=== PATIENT | male | born 1955 | race Caucasian/White ===

== ENCOUNTER 2020-07-31 18:31 | Inpatient (IN) | payer OTHER ==
[~2020-07-31] VITALS: Ht 175.3 cm; Wt 108.4 kg
[2020-07-31 18:37] VITALS: BP 171/61
[2020-07-31 19:05] LABS: ABSOLUTE BASOPHILS 0.1 thou/uL (0.0-0.2); ABSOLUTE EOSINOPHILS 0.2 thou/uL (0.0-0.7); ABSOLUTE LYMPHOCYTES 1.1 thou/uL (0.8-5.3); ABSOLUTE MONOCYTES 0.6 thou/uL (0.0-1.2); ABSOLUTE NEUTROPHILS 3.3 thou/uL (1.6-8.1); EOSINOPHILS 3.1 %; HEMATOCRIT 37.9 % (42.0-52.0); HEMOGLOBIN 12.9 gm/dL (14.0-18.0); LYMPHOCYTES 21.4 %; MCH 30.6 pg (26.0-34.0); MCHC 34.2 g/dL (28.0-37.0); MCV 89.5 fL (80.0-100.0); MONOCYTES 12.1 %; MPV 7.9 fl. (7.2-11.1); NUCLEATED RBCS 0 /100WBC; PLATELET COUNT* 166 thou/uL (150-400); POLYS 62.4 %; RBC 4.23 mil/uL (4.50-6.00); RDW-CV 15.2 % (10.5-14.5); WBC 5.2 thou/uL (4.0-11.0)
[2020-07-31 19:12] LABS: CALCIUM 8.1 mg/dL (8.5-10.1); CREATININE 1.1 mg/dL (0.6-1.3); POTASSIUM 3.8 mmol/L (3.5-5.1)
[2020-07-31 19:23] LABS: ALBUMIN 3.5 g/dL (3.4-5.0); MAGNESIUM 1.9 mg/dL (1.8-2.4); TOTAL BILIRUBIN 0.5 mg/dL (<0.1-1.0); TOTAL PROTEIN 7.4 g/dL (6.4-8.2)
[2020-07-31 19:30] LABS: APTT 24.7 Seconds (25.0-31.3); PROTIME 10.7 Seconds (9.20-11.50)
[2020-07-31 21:17] LABS: URINE BILIRUBIN NEGATIVE (Negative); URINE BLOOD NEGATIVE (Negative); URINE CLARITY CLEAR; URINE COLOR YELLOW; URINE GLUCOSE-RANDOM NEGATIVE (Negative); URINE KETONES NEGATIVE (Negative); URINE LEUKOCYTES-REFLEX NEGATIVE (Negative); URINE NITRITE-REFLEX NEGATIVE (Negative); URINE PROTEIN TRACE (Negative); URINE SPECIFIC GRAVITY 1.025 (1.005-1.030); URINE UROBILINOGEN 0.2 E.U./dl (0.2-1.0)
[2020-07-31 21:24] LABS: AMP/METHAMP Negative (Negative); BARBITURATES Negative (Negative); BENZODIAZEPINES Negative (Negative); COCAINE Negative (Negative); METHADONE Negative (Negative); OPIATES Negative (Negative); PCP Negative (Negative); THC Negative (Negative)
[2020-07-31 21:42] VITALS: BP 145/70
[2020-08-01] VITALS (20 sets, daily range): BP systolic 117–167; BP diastolic 63–90
--- NOTE | 2020-08-01 10:16 | EKG ---
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: JERMAIN : 1955 Requested By: Char Moreno Order Number: [id number] MD: Damian Schrader Measurements Intervals [place] Rate: 87 P: 38 VA: 146 QRS: 2 QRSD: 93 T: 6 QT: 407 QTc: 490 Interpretive Statements Sinus rhythm Probable left atrial enlargement Probable LVH with secondary repol abnrm Borderline prolonged QT interval No previous ECG available for comparison Electronically Signed On 08-01-2020 10:16:06 CDT by Damian Schrader [email or web address] <ELECTRONICALLY SIGNED> By: Damian Schrader MD, FACC 08/01/20 1016 1847 1847 Damian Schrader MD, [facility] /EPI
--- NOTE | 2020-08-01 14:15 | EKG ---
[place] [address] ELECTROCARDIOGRAM REPORT Name: MARIA TERESA HORN Room: [address] ADM IN .R.#: [id number] Admission: 07/31/20 Attend Phys: Jody Fish, Discharge: Date of : 59 Date of Service: 08/01/20 1232 Report #: [id number] THIS REPORT FOR: //name// 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29 : 1955 Requested By: Damian Schrader Order Number: [id number] [place] MD: Damian Schrader Measurements Intervals [place] Rate: 82 P: 57 [place]: 147 QRS: 13 QRSD: 93 T: 30 QT: 370 QTc: 432 Interpretive Statements Sinus rhythm Probable LVH with secondary repol abnrm Compared to ECG 07/31/2020 18:47:44 No significant changes Electronically Signed On 08-01-2020 14:15:03 CDT by Damian Schrader [email or web address] <ELECTRONICALLY SIGNED> By: Damian Schrader MD, [facility] 08/01/20 1415 1232 1232 Damian Schrader MD, [facility] /EPI
[2020-08-02] VITALS: BP 151/88
[2020-08-02 05:10] LABS: ABSOLUTE EOSINOPHILS 0.1 thou/uL (0.0-0.7); ABSOLUTE LYMPHOCYTES 1.1 thou/uL (0.8-5.3); ABSOLUTE MONOCYTES 0.6 thou/uL (0.0-1.2); ABSOLUTE NEUTROPHILS 2.9 thou/uL (1.6-8.1); BASOPHILS 0.5 %; HEMATOCRIT 34.6 % (42.0-52.0); LYMPHOCYTES 22.5 %; MCH 31.1 pg (26.0-34.0); MCHC 34.6 g/dL (28.0-37.0); MCV 89.9 fL (80.0-100.0); MONOCYTES 13.4 %; MPV 8.7 fl. (7.2-11.1); NUCLEATED RBCS 0 /100WBC; PLATELET COUNT* 145 thou/uL (150-400); POLYS 61.6 %; RBC 3.85 mil/uL (4.50-6.00); RDW-CV 15.2 % (10.5-14.5); WBC 4.7 thou/uL (4.0-11.0)
[2020-08-02 05:17] LABS: ANION GAP 9 mmol/L (7-16); BUN 14 mg/dL (7-18); CALCIUM 8.2 mg/dL (8.5-10.1); CHLORIDE 101 mmol/L (98-107); CHOLESTEROL 161 mg/dL (<200); CO2 26 mmol/L (21-32); CREATININE 1.1 mg/dL (0.6-1.3); GLUCOSE 135 mg/dL (70-99); HDL CHOLESTEROL 42 mg/dL (>40); LDL CHOLESTEROL 93 mg/dL (<100); POTASSIUM 3.6 mmol/L (3.5-5.1); SODIUM 136 mmol/L (136-145); TC:HDL 3.8 Ratio (Not establshd); TRIGLYCERIDE 130 mg/dL (<150); VLDL 26 mg/dL (<40)
[2020-08-02 05:18] VITALS: BP 134/67
[2020-08-02 05:19] LABS: SERUM ASSESSMENT CLEAR
[2020-08-02 05:20] LABS: TROPONIN-I LEVEL 4.23 ng/mL (<0.06)
[2020-08-02 08:00] VITALS: BP 144/80
--- NOTE | 2020-08-02 11:43 | EKG ---
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: : 1955 Requested By: Damian Schrader Order Number: [id number] Gardenia MD: Damian Schrader Measurements Intervals [place] Rate: 99 P: 50 [place]: 149 QRS: 25 QRSD: 94 T: -53 QT: 352 QTc: 452 Interpretive Statements Sinus rhythm Probable left atrial enlargement Probable LVH with secondary repol abnrm Compared to ECG 08/01/2020 12:32:35 No significant changes Electronically Signed On 08-02-2020 11:43:06 CDT by Damian Schrader [email or web address] <ELECTRONICALLY SIGNED> By: Damian Schrader MD, [facility] 08/02/20 1143 0849 0849 Damian Schrader MD, [facility] /EPI
[2020-08-02 12:00] VITALS: BP 136/72; BP 138/82
[2020-08-02 20:00] VITALS: BP 143/80
[2020-08-03] VITALS: BP 140/80
[2020-08-03 04:00] VITALS: BP 125/73
[2020-08-03 05:46] LABS: CALCIUM 8.8 mg/dL (8.5-10.1); CREATININE 1.2 mg/dL (0.6-1.3); POTASSIUM 4.1 mmol/L (3.5-5.1)
[2020-08-03 08:00] VITALS: BP 131/78
[2020-08-03 09:37] VITALS: BP 136/72
--- NOTE | 2020-08-03 10:29 | EKG ---
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: : 1955 Requested By: Damian Schrader Order Number: [id number] [place] MD: Damian Schrader Measurements Intervals [place] Rate: 84 P: 48 [place]: 149 QRS: 14 QRSD: 98 T: -52 QT: 381 QTc: 451 Interpretive Statements Sinus rhythm Probable LVH with secondary repol abnrm Inferior infarct, age indeterminate Compared to ECG 08/02/2020 08:49:43 no change Electronically Signed On 08-03-2020 10:29:04 CDT by Damian Schrader [email or web address] <ELECTRONICALLY SIGNED> By: Damian Schrader MD, FAC 08/03/20 1029 0844 0844 Damian Schrader MD, [facility] /EPI
[2020-08-03] MEDS ORDERED: COREG6.25 MG PO (10:33)
[2020-08-03] MEDS ORDERED: PLAVIX 75 MG TA75 M1 PO (10:33)
[2020-08-03] MEDS ORDERED: NITROSTAT0.3 MG PO (10:33)
[2020-08-03] MEDS ORDERED: COZAAR 50 MG TA50 M1 PO (10:33)
[2020-08-03] MEDS ORDERED: ASPIR 8181 MG PO (10:33)
[2020-08-03] MEDS ORDERED: LIPITOR 40 MG T40 M1 PO (10:33)
[2020-08-03 11:36] VITALS: BP 136/72
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
--- NOTE | 2020-08-03 17:17 | CARD ---
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 Plant Operator, Ebony Alvarez RN Scorer Helper, Makayla Sanchez RTR Monitor, Ariela Landrum RTR Scrub Procedures Performed Art Access - R radial artery, Left Heart Cath w/or w/o Coronaries LHC, TRAE Place w/wo Plasty Single RCA, Hemostasis with Hemoband Indication Abnormal ECG, Non-STEMI , Chest pain Risk Factors Hypertension Admission/Lab Medications/Medications given during procedure Glycoprotein IllbIlla Inhibitors, Heparin Unfract., Heparin IV 5000 units, Aggrastat IV bolus 10.5 ml, Plavix PO 600 mg, Nitroglycerin IA 400 mcg, Verapamil IA 5 mg Procedure Narrative The patient was brought electively to the Cardiac Catheterization Laboratory and was prepped and draped in a sterile manner. The right wrist was infiltrated with 1% Lidocaine subcutaneous anesthesia. A 6F Slender [place] sheath was inserted into the right radial artery. Coronary angiography was performed using coronary diagnostic catheters. The right coronary system was accessed and visualized with a 6F JR4 catheter. The left coronary system was accessed and visualized with a 6F JL4 catheter. The left ventricle was accessed and visualized with a 6F Straight Pigtail catheter. Left ventricular/Aortic Valve gradient assessed [place] [address] CARDIAC CATH REPORT Name: JUSTINAMARIA TERESA Tika Room: [address] IN ..#: [id number] Admission: 07/31/20 Attend Phys: Jody Fish MD Discharge: 08/03/20 Date of : 59 Report #: [id number] Left ventriculogram was performed in COPELAND projection. Closure device was deployed with a 6 Fr Vasc-Band Lng 27cm. The patient tolerated the procedure well and there were no complications associated with the procedure. There was no hematoma. Intraoperative Conscious Sedation Sedation start time: 10:25 Case end Time: 11:12 Fentanyl 50 mcg Versed 2 mg Fluoro Time: 8 minutes Dose: DAP [id number] cGycm2 1625 mGy Contrast Type and Amount: Omnipaque 260 ml Coronary Angiography The patient's coronary anatomy is right dominant. Diagnostic Cath Left Main 0% stenosis LAD 30% proximal and 30% mid stenosis noted Circumflex 60% distal stenosis noted Right Coronary 95% proximal and 40% distal stenosis noted Left Ventriculography The left ventricular ejection fraction is estimated to be 35-40%. Left ventricular wall motion abnormalities are present. There is 1+ mitral insufficiency. severe hypokinesis noted of the inferior wall Hemodynamics The aortic pressure is 124/72 mmHg with a mean of 95 mmHg. The left ventricular pressure is 124/20 mmHg with a mean of mmHg. The left ventricular end diastolic pressure is 29 mmHg. There was no gradient across the aortic valve upon pullback. Pullback from the left ventricle to the aorta revealed no gradient across the aortic valve. PCI Technique Lesion Anticoagulation was achieved with Heparin. Aggrastat IV bolus 10.5 ml given. Percutaneous coronary intervention was performed on the proximal right coronary artery. The lesion stenosis prior to intervention was 95% with GARLAND 3 flow. A 6FR JCR 4 100CM Guide Catheter was used to engage the right ostium. A BMW 190cm Interventional Guidewire was used to cross the [place] [address] CARDIAC CATH REPORT Name: MARIA TERESA HORN Room: [address]#: [id number] Admission: 07/31/20 Attend Phys: Jody Fish MD Discharge: 08/03/20 Date of : 59 Report #: [id number] A Balloon catheter Euphora SC 3.0x10 was inserted and inflated up to 12.00atm for 14seconds. Repeat angiography revealed the following post-dilatation results: 40% stenosis. STENT DEPLOYMENT A drug-eluting stent Godfrey RX Stent 3.5X26mm was inserted and inflated up to 12.00atm for 20seconds. Repeat angiography revealed the following post-stent deployment results: 0% stenosis. Additional Inflation: 17.00atm for 26seconds. Additional Inflation: 18.00atm for 13seconds. Additional inflations: 19 radha for 16 seconds; 19 radha for 19 seconds. Final angiography reveals 0 % stenosis with GARLAND 3 flow. Conclusion 1. 95% stenosis of the proximal rca 2. LVEF 35-40% 3. successful placement of a single drug eluting stent in the rca Recommendations Cardiac Rehabilitation Referral Aggressive Medical Therapy Medications Administered Clopidogrel <ELECTRONICALLY SIGNED> By: Damian Schrader MD, FACC 08/03/201716 16 1717Damian Schrader MD, FACC /INF
[2020-08-03 23:06] LABS: GLYCOHEMOGLOBIN (HGB A1C) 6.2 % (4.8-5.6)
== END 2020-08-03 12:05 | disposition home or self-care (01) | DRG 246 ==
LOC: M.ERS 18:31 → M.TBA-ER 19:39 → M.2W 19:39
PROVIDERS: Internal Medicine; Internal Medicine Cardiovascular Disease; Nurse Practitioner Family; ADMIT Internal Medicine; ATTEND Internal Medicine
PROC: B2111ZZ Fluoroscopy of Multiple Coronary Arteries using Low Osmolar Contrast (ICD-10-PCS; principal; 2020-08-01)
PROC: B2151ZZ Fluoroscopy of Left Heart using Low Osmolar Contrast (ICD-10-PCS; principal; 2020-08-01)
PROC: 027034Z Dilation of Coronary Artery, One Artery with Drug-eluting Intraluminal Device, Percutaneous Approach (ICD-10-PCS; principal; 2020-08-01)
PROC: 4A023N7 Measurement of Cardiac Sampling and Pressure, Left Heart, Percutaneous Approach (ICD-10-PCS; principal; 2020-08-01)
DX: I21.4 Non-ST elevation (NSTEMI) myocardial infarction (principal); I50.41 Acute combined systolic (congestive) and diastolic (congestive) heart failure; I42.9 Cardiomyopathy, unspecified; I47.1 Supraventricular tachycardia; I11.0 Hypertensive heart disease with heart failure; E66.9 Obesity, unspecified; I20.0 Unstable angina; Z20.828 Contact with and (suspected) exposure to other viral communicable diseases; Z79.899 Other long term (current) drug therapy; Z82.49 Family history of ischemic heart disease and other diseases of the circulatory system; Z86.73 Personal history of transient ischemic attack (TIA), and cerebral infarction without residual deficits; Z68.35 Body mass index [BMI] 35.0-35.9, adult; Z72.89 Other problems related to lifestyle